=== PATIENT | male | born 1955 | race African-American/Black ===

== ENCOUNTER 2017-06-16 11:32 | Inpatient (IN) | payer MEDICARE, MEDICAID ==
[~2017-06-16] VITALS: Ht 170.2 cm; Wt 92.0 kg
[2017-06-16] MEDS ORDERED: ATOR20TA86 PO (11:42)
[2017-06-16] MEDS ORDERED: AMLO-511 PO (11:42)
[2017-06-16] MEDS ORDERED: ZOLP5 PO (11:42)
[2017-06-16] MEDS ORDERED: CLOP75 PO (11:42)
[2017-06-16] MEDS ORDERED: CLON.2 PO (11:42)
[2017-06-16] MEDS ORDERED: OLAN2.5T3 PO (11:42)
[2017-06-16] MEDS ORDERED: FURO40 PO (11:42)
[2017-06-16] MEDS ORDERED: ASPIRIN 81 MG CHEWABLE TABLET PO ONE (12:00)
[2017-06-16 12:29] LABS: BASOPHILS % (AUTO) 0.6 % (0.0-2.0); EOSINOPHILS % (AUTO) 1.9 % (1.0-6.0); HEMATOCRIT 41.9 % (41-53); HEMOGLOBIN 14.2 g/dL (13.5-17.5); LYMPHOCYTES # (AUTO) 1.5 K/uL (1.0-4.8); LYMPHOCYTES % (AUTO) 23.2 % (22.0-44.0); MEAN CORPUSCULAR HEMOGLOBIN 30.1 pg (26.0-34.0); MEAN CORPUSCULAR HGB CONC 33.8 G/dL (31.0-37.0); MEAN CORPUSCULAR VOLUME 89 fL (80-100); MONOCYTES # (AUTO) 0.5 K/uL (0.1-1.0); MONOCYTES % (AUTO) 7.5 % (2.0-9.0); NEUTROPHILS # (AUTO) 4.2 K/uL (1.8-7.7); NEUTROPHILS % (AUTO) 66.8 % (40.0-70.0); PLATELET COUNT (AUTO) 220 K/uL (150-450); RED BLOOD CELL COUNT(AUTO) 4.72 MIL/uL (4.50-5.90); RED CELL DISTRIBUTION WIDTH 14.1 % (11.5-14.5)
[2017-06-16] MEDS ORDERED: ONDANSETRON HCL 4 MG/2 ML VIAL IVP PRN (12:30)
[2017-06-16] MEDS ORDERED: 0.9% SODIUM CHLORIDE 10 ML SYRINGE IVP PRN (12:30)
[2017-06-16] MEDS ORDERED: ACETAMINOPHEN 325 MG TABLET PO PRN ×2 (12:30→13:30)
[2017-06-16 12:42] LABS: ANION GAP 8 mmol/L (8-16); CALCIUM, TOTAL 8.6 mg/dL (8.8-10.5); CARBON DIOXIDE 32 mmol/L (22-29); CHLORIDE 103 mmol/L (98-107); CREATININE 1.38 mg/dL (0.60-1.30); GLOMERULAR FILTR. RATE CALC > 60 mL/min (>60); GLUCOSE,RANDOM 96 mg/dL (70-110); POTASSIUM 3.5 mmol/L (3.5-5.1); SODIUM SERUM 143 mmol/L (136-145); UREA NITROGEN, BLOOD 15 mg/dL (7-18)
[2017-06-16 12:47] LABS: B-TYPE NATRIURETIC PEPTIDE 81 pg/mL (0-100)
[2017-06-16 12:48] LABS: ALANINE AMINOTRANSFERASE 35 U/L (12-78); ALBUMIN 3.4 g/dL (3.4-5.0); ALKALINE PHOSPHATASE 93 U/L (46-116); ASPARTATE AMINOTRANSFERASE 22 U/L (15-37); BILIRUBIN,TOTAL 0.4 mg/dL (0.1-1.0); TOTAL PROTEIN, SERUM 7.2 g/dL (6.4-8.2)
[2017-06-16 12:55] LABS: APPEARANCE,URINE CLEAR (CLEAR); BILIRUBIN,URINE NEGATIVE (NEGATIVE); GLUCOSE, URINE (UA) NEGATIVE (NEGATIVE); KETONES,URINE NEGATIVE (NEGATIVE); LEUKOCYTE ESTERASE ,URINE NEGATIVE (NEGATIVE); NITRATE,URINE NEGATIVE (NEGATIVE); OCCULT BLOOD,URINE NEGATIVE (NEGATIVE); PROTEIN,URINE NEGATIVE (NEGATIVE)
[2017-06-16 13:00] LABS: AMPHET/METH SCREEN,URINE NEGATIVE (NEGATIVE); BARBITURATE SCREEN, URINE NEGATIVE (NEGATIVE); BENZODIAZEPINES SCREEN,URINE NEGATIVE (NEGATIVE); CANNABINOID SCREEN,URINE NEGATIVE (NEGATIVE); COCAINE SCREEN,URINE NEGATIVE (NEGATIVE); METHADONE SCREEN, URINE NEGATIVE (NEGATIVE); OPIATE SCREEN,URINE NEGATIVE (NEGATIVE)
[2017-06-16 13:04] LABS: PHENCYCLIDINE SCREEN,URINE NEGATIVE (NEGATIVE)
[2017-06-16] MEDS ORDERED: ALBUTEROL SULFATE 2.5 MG/0.5 ML NEB SOLUTION NEB PRN (13:30)
[2017-06-16] MEDS ORDERED: MAGNESIUM HYDROXIDE SUSPENSION 30 ML UDCUP PO PRN (13:30)
[2017-06-16] MEDS ORDERED: SODIUM CHLORIDE 0.9% 100 ML ONE (15:39)
[2017-06-16] MEDS ORDERED: IOVERSOL 350 MG/ML 100 ML VIAL ONE (15:39)
[2017-06-16] MEDS: DEXTRAN 70 0.1%/HYPROMELL 0.3% 0.9 ML OPHTHALMIC SOLUTION [PF] OS SCH ×2 (17:46→23:55)
[2017-06-16] MEDS: HEPARIN SODIUM,PORCINE 5,000 UNITS/ML VIAL SQ SCH ×2 (17:47→23:55)
[2017-06-16 17:50] VITALS: BP 154/107
[2017-06-16 19:30] VITALS: BP 142/92
[2017-06-16] MEDS ORDERED: CloNIDine HCL 0.1 MG TABLET PO PRN (19:45)
[2017-06-16] MEDS: ATORVASTATIN CALCIUM 20 MG TABLET PO SCH (20:15)
[2017-06-16] MEDS: DOCUSATE SODIUM 100 MG CAPSULE PO SCH (20:15)
[2017-06-17 00:02] VITALS: BP 127/85
[2017-06-17 04:56] VITALS: BP 135/95
[2017-06-17] MEDS: DEXTRAN 70 0.1%/HYPROMELL 0.3% 0.9 ML OPHTHALMIC SOLUTION [PF] OS SCH ×3 (06:04→17:20)
[2017-06-17 07:19] VITALS: BP 140/95
[2017-06-17] MEDS: HEPARIN SODIUM,PORCINE 5,000 UNITS/ML VIAL SQ SCH ×2 (08:07→16:41)
[2017-06-17] MEDS: MULTIVITAMINS WITH MINERALS, THERAPEUTIC TABLET PO SCH (08:10)
[2017-06-17] MEDS: PANTOPRAZOLE SODIUM 40 MG DR TABLET PO SCH (08:10)
[2017-06-17] MEDS: CLOPIDOGREL BISULFATE 75 MG TABLET PO SCH (08:10)
[2017-06-17] MEDS: ASPIRIN 81 MG CHEWABLE TABLET PO SCH (08:10)
[2017-06-17] MEDS: DOCUSATE SODIUM 100 MG CAPSULE PO SCH ×2 (08:10→21:03)
[2017-06-17] MEDS ORDERED: AmLODIPine BESYLATE 5 MG TABLET PO SCH (09:00)
[2017-06-17] MEDS ORDERED: CloNIDine HCL 0.2 MG TABLET PO SCH (09:00)
[2017-06-17 11:29] VITALS: BP 111/80
[2017-06-17 19:39] VITALS: BP 133/84
[2017-06-17] MEDS: AmLODIPine BESYLATE 5 MG TABLET PO SCH (21:03)
[2017-06-17] MEDS: ATORVASTATIN CALCIUM 20 MG TABLET PO SCH (21:03)
[2017-06-17 23:25] VITALS: BP 121/82
[2017-06-18] MEDS: HEPARIN SODIUM,PORCINE 5,000 UNITS/ML VIAL SQ SCH ×2 (00:07→07:50)
[2017-06-18] MEDS: DEXTRAN 70 0.1%/HYPROMELL 0.3% 0.9 ML OPHTHALMIC SOLUTION [PF] OS SCH ×3 (00:07→11:26)
[2017-06-18 04:01] VITALS: BP 153/98
[2017-06-18 05:20] VITALS: BP 127/94
[2017-06-18 06:09] LABS: BASOPHILS % (AUTO) 0.8 % (0.0-2.0); HEMATOCRIT 40.1 % (41-53); HEMOGLOBIN 13.6 g/dL (13.5-17.5); LYMPHOCYTES # (AUTO) 1.7 K/uL (1.0-4.8); LYMPHOCYTES % (AUTO) 32.8 % (22.0-44.0); MEAN CORPUSCULAR HEMOGLOBIN 30.2 pg (26.0-34.0); MEAN CORPUSCULAR HGB CONC 33.9 G/dL (31.0-37.0); MEAN CORPUSCULAR VOLUME 89 fL (80-100); MONOCYTES # (AUTO) 0.5 K/uL (0.1-1.0); MONOCYTES % (AUTO) 8.8 % (2.0-9.0); NEUTROPHILS # (AUTO) 2.8 K/uL (1.8-7.7); NEUTROPHILS % (AUTO) 53.6 % (40.0-70.0); PLATELET COUNT (AUTO) 210 K/uL (150-450); RED BLOOD CELL COUNT(AUTO) 4.51 MIL/uL (4.50-5.90); RED CELL DISTRIBUTION WIDTH 14.2 % (11.5-14.5)
[2017-06-18 06:49] LABS: ALANINE AMINOTRANSFERASE 29 U/L (12-78); ALBUMIN 3.1 g/dL (3.4-5.0); ALKALINE PHOSPHATASE 79 U/L (46-116); ANION GAP 6 mmol/L (8-16); ASPARTATE AMINOTRANSFERASE 18 U/L (15-37); BILIRUBIN,TOTAL 0.4 mg/dL (0.1-1.0); CARBON DIOXIDE 34 mmol/L (22-29); CHLORIDE 102 mmol/L (98-107); CREATININE 1.42 mg/dL (0.60-1.30); GLOMERULAR FILTR. RATE CALC > 60 mL/min (>60); GLUCOSE,RANDOM 81 mg/dL (70-110); POTASSIUM 3.8 mmol/L (3.5-5.1); SODIUM SERUM 142 mmol/L (136-145); TOTAL PROTEIN, SERUM 6.7 g/dL (6.4-8.2); UREA NITROGEN, BLOOD 18 mg/dL (7-18)
[2017-06-18 06:59] LABS: CALCIUM, TOTAL 8.7 mg/dL (8.8-10.5)
[2017-06-18] MEDS: MULTIVITAMINS WITH MINERALS, THERAPEUTIC TABLET PO SCH (07:50)
[2017-06-18] MEDS: CLOPIDOGREL BISULFATE 75 MG TABLET PO SCH (07:51)
[2017-06-18] MEDS: PANTOPRAZOLE SODIUM 40 MG DR TABLET PO SCH (07:51)
[2017-06-18] MEDS: DOCUSATE SODIUM 100 MG CAPSULE PO SCH (07:51)
[2017-06-18] MEDS: ASPIRIN 81 MG CHEWABLE TABLET PO SCH (07:51)
[2017-06-18] MEDS: AmLODIPine BESYLATE 5 MG TABLET PO SCH (08:49)
[2017-06-18 08:51] VITALS: BP 159/115
[2017-06-18] MEDS: HydrALAZINE HCL 20 MG/ML VIAL IVP PRN ×2 (10:16→11:21)
[2017-06-18 10:17] VITALS: BP 172/117
[2017-06-18 11:04] VITALS: BP 176/113
[2017-06-18] MEDS ORDERED: AmLODIPine BESYLATE 5 MG TABLET PO ONE (11:15)
[2017-06-18] MEDS ORDERED: HydrALAZINE HCL 20 MG/ML VIAL IVP PRN (11:30)
[2017-06-18] MEDS ORDERED: ATOR20TA86 PO (12:50)
[2017-06-18] MEDS ORDERED: FURO40 PO (12:50)
[2017-06-18] MEDS ORDERED: AMLO-512 PO (12:50)
[2017-06-18] MEDS ORDERED: CLOP75 PO (12:50)
[2017-06-18] MEDS ORDERED: OLAN2.5T3 PO (12:51)
[2017-06-18] MEDS ORDERED: HydrALAZINE HCL 25 MG TABLET PO SCH (16:00)
[2017-06-18] MEDS ORDERED: AmLODIPine BESYLATE 5 MG TABLET PO SCH (21:00)
[2017-06-19] MEDS ORDERED: AmLODIPine BESYLATE 10 MG TABLET PO SCH (09:00)
== END 2017-06-18 13:00 | disposition home or self-care (01) | DRG 69 ==
LOC: EMS 11:33 → 5S 15:15
PROVIDERS: ADMIT Internal Medicine; ATTEND Internal Medicine
DX: G45.9 Transient cerebral ischemic attack, unspecified (principal); I50.9 Heart failure, unspecified; N18.3 Chronic kidney disease, stage 3 (moderate); I13.0 Hypertensive heart and chronic kidney disease with heart failure and stage 1 through stage 4 chronic kidney disease, or unspecified chronic kidney disease; I44.1 Atrioventricular block, second degree; E55.9 Vitamin D deficiency, unspecified; E78.00 Pure hypercholesterolemia, unspecified; E78.5 Hyperlipidemia, unspecified; I45.9 Conduction disorder, unspecified; Z82.49 Family history of ischemic heart disease and other diseases of the circulatory system; Z98.2 Presence of cerebrospinal fluid drainage device; I69.392 Facial weakness following cerebral infarction
CPT/HCPCS: 70250; 70450; 70498; 70544; 70551; 82306; 83735; 93005; 93306; 93880; 97162; 97167; 97530; 97535; J0360; J1644; J7050

== ENCOUNTER → 2020-07-29 | Outpatient (CLI) | payer MEDICARE ==
[~2020-07-29] MED LIST: AMLO-258 PO; ATOR20TA86 PO; CLOP75TA60 PO; FURO40 PO; OLAN2.5T3 PO
== END | disposition home or self-care (01) ==
LOC: RADPV 14:52
PROVIDERS: ATTEND Legal Medicine
DX: I70.0 Atherosclerosis of aorta (principal); R06.09 Other forms of dyspnea
CPT/HCPCS: 71046